=== PATIENT | male | born 1935 | race Hispanic/Latino ===

== ENCOUNTER 2017-06-24 10:52 | Inpatient (IN) | payer MEDICARE ==
[2017-06-24] MEDS ORDERED: ASPIRIN PO ONE (11:38)
[2017-06-24] MEDS ORDERED: NACL 0.9% 1000 ML IV ONE (11:59)
[2017-06-24] MEDS ORDERED: NACL 0.9% 1000 ML 2,000 ML ONE (12:01)
--- NOTE | 2017-06-24 12:06 | Emergency Department Report ---
ED General Adult HPI - General Chief complaint: Chest Pain Stated complaint: CHEST PAIN Time Seen by Provider: 06/24/17 11:43 Source: patient, family, EMS Mode of arrival: Stretcher Limitations: Physical Limitation - History of Present Illness Initial comments: Patient is a 51 years old male with history of COPD and hypertension presented to the ER with a chief complaint of right side chest pain and cough for the last few days. Patient describes his pain as sharp. He denied any nausea or vomiting. He is complaining of shortness of breath also. Patient is tachycardic with a low blood pressure of 80/38. Suspected sepsis or other screen placed patient receive antibiotic and fluids. -: Gradual - Related Data Allergies Allergy/AdvReac Type Severity Reaction Status Date / Time No Known Allergies Allergy Verified 02/08/15 13:36 ED Review of Systems ROS: Stated complaint: CHEST PAIN Other details as noted in HPI Comment: All other systems reviewed and negative Respiratory: cough, shortness of breath Cardiovascular: chest pain, palpitations Gastrointestinal: denies: abdominal pain, nausea, vomiting Neurological: denies: headache, weakness, numbness ED Past Medical Hx - Past Medical History Hx Hypertension: Yes Hx COPD: Yes (3LNC) Additional medical history: Skin cancer on face. - Surgical History Hx Appendectomy: Yes Additional Surgical History: stent x 3, sleeve placed in the aorta - Social History Smoking Status: Former Smoker ED Physical Exam - General Limitations: Physical Limitation General appearance: alert, in no apparent distress - Head Head exam: Present: atraumatic, normocephalic, normal inspection - ENT ENT exam: Present: normal exam, mucous membranes dry - Neck Neck exam: Present: normal inspection, full ROM. Absent: tenderness, meningismus - Respiratory Respiratory exam: Present: normal lung sounds bilaterally. Absent: respiratory distress, wheezes, rales, chest wall tenderness - Cardiovascular Cardiovascular Exam: Present: tachycardia - GI/Abdominal GI/Abdominal exam: Present: soft, normal bowel sounds. Absent: distended, tenderness, guarding, rebound, rigid, organomegaly, mass, bruit, pulsatile mass - Extremities Exam Extremities exam: Present: normal inspection, full ROM, normal capillary refill - Back Exam Back exam: Present: normal inspection, full ROM. Absent: CVA tenderness (L) - Neurological Exam Neurological exam: Present: alert, oriented X3. Absent: CN II-XII intact - Skin Skin exam: Present: warm, intact, normal color ED Course Vital Signs 06/24/17 06/24/17 06/24/17 11:11 11:16 11:28 Temperature 99.5 F Pulse Rate 127 H Respiratory 18 Rate Blood Pressure 105/55 105/55 109/55 O2 Sat by Pulse 98 97 Oximetry 06/24/17 06/24/17 06/24/17 11:30 11:36 11:46 Temperature Pulse Rate 126 H 123 H Respiratory 19 17 19 Rate Blood Pressure 109/55 105/55 O2 Sat by Pulse 99 98 Oximetry 06/24/17 06/24/17 06/24/17 12:00 12:16 12:28 Temperature 98.8 F Pulse Rate 122 H 121 H Respiratory 17 21 Rate Blood Pressure 93/48 93/48 O2 Sat by Pulse 98 98 Oximetry ED Medical Decision Making - Lab Data Result diagrams: 06/24/17 11:43 06/24/17 11:43 - EKG Data -: EKG Interpreted by Dc EKG shows normal: sinus rhythm Rate: tachycardia - EKG Data Interpretation: no acute changes - Radiology Data Radiology results: report reviewed Referring Physician: MARGIE WOLFF Patient Name: DIDI SLATER Date of : 1935 Sex: Male Report Date: 2017-06-24 Report Status: Finalized Findings [address] [address] XRay Report Signed Patient: DIDI SLATER MR#: [id number] : 1935 Acct:[id number] Age/Sex: 81 / M ADM Date: 06/24/17 Loc: ED Attending Dr: Ordering Physician: MARGIE WOLFF Date of Service: 06/24/17 Procedure(s): XR chest 1V ap Accession Number(s): [id number] cc: MARGIE WOLFF Fluoro Time In Minutes: PORTABLE CHEST INDICATION: Chest pain. COMPARISON: None similar. FINDINGS: Portable, frontal chest radiograph demonstrates bilateral mid to lower lung infiltrates, greatest centrally and partly obscuring questionably prominent/enlarged jose. Normal heart size. Clear upper lung zones. EKG leads. Lower cervical spine fusion hardware and few right supraclavicular surgical clips incompletely imaged. CONCLUSION: Bilateral mid to lower lung pneumonias, of uncertain chronicity and etiology with various differentials at this time including infection, inflammation or congestion, amongst others. Please also correlate clinically and with prior relevant imaging, if available. Thank you for the opportunity to participate in this patient's care. Transcribed By: RS Dictated By: JOSE MURRAY MD Electronically Authenticated By: JOSE MURRAY MD Signed Date/Time: 06/24/171228 DD/ 25 TD/TT: 06/24/171228 - Medical Decision Making Referring Physician: MARGIE WOLFF Patient Name: DIDI SLATER Date of : 1935 Sex: Male Report Date: 2017-06-24 Report Status: Finalized Findings [facility] [address] [place] [address] XRay Report Signed Discussed with Dr. Canas, he agreed to admit the patient to his service. Critical Care Time: Yes Critical care time in (mins) excluding proc time.: 30 Critical care attestation.: If time is entered above; I have spent that time in minutes in the direct care of this critically ill patient, excluding procedure time. ED Disposition Clinical Impression: Acute onset sepsis, Pneumonia Disposition: OP ADMIT IP TO THIS HOSP Is pt being admited?: Yes Condition: Stable Instructions: Bacterial Pneumonia (ED) Referrals: PRIMARY CARE, [Primary Care Provider] - 3-5 Days
[2017-06-24 12:29] LABS: BUN/Creatinine Ratio 29; Blood Urea Nitrogen 20 mg/dL (9-20); Calcium 8.6 mg/dL (8.4-10.2); Hemolysis Index 33
[2017-06-24 12:31] LABS: Hematocrit 32.8 % (35.5-45.6); Hemoglobin 10.8 gm/dl (11.8-15.2); Mean Corpuscular HGB Conc 33 % (32-34); Mean Corpuscular Hemoglobin 30 pg (28-32); Mean Corpuscular Volume 90 fl (84-94); Platelet Count 284 K/mm3 (140-440); Red Blood Count 3.63 M/mm3 (3.65-5.03); Red Cell Distribution Width 14.6 % (13.2-15.2)
--- NOTE | 2017-06-24 12:38 | XRay Report ---
PORTABLE CHEST INDICATION: Chest pain. COMPARISON: None similar. FINDINGS: Portable, frontal chest radiograph demonstrates bilateral mid to lower lung infiltrates, greatest centrally and partly obscuring questionably prominent/enlarged jose. Normal heart size. Clear upper lung zones. EKG leads. Lower cervical spine fusion hardware and few right supraclavicular surgical clips incompletely imaged. CONCLUSION: Bilateral mid to lower lung pneumonias, of uncertain chronicity and etiology with various differentials at this time including infection, inflammation or congestion, amongst others. Please also correlate clinically and with prior relevant imaging, if available. Thank you for the opportunity to participate in this patient's care.
[2017-06-24 12:42] LABS: INR 1.1 (0.87-1.13)
[2017-06-24 14:08] LABS: Anisocytosis 1+; Band Neutrophils # (Manual) 2.2 K/mm3; Basophils % (Manual) 0 % (0.0-1.8); Eosinophils % (Manual) 0 % (0.0-4.3); Total Cells Counted 100
[2017-06-24] MEDS: ZOSYN/NS 3.375GM/50ML 3.375 GM/50 ML BAG IV SCH ×2 (14:11→19:09)
[2017-06-24 15:51] LABS: Bilirubin,Urine NEG (Negative); Blood,Urine NEG (Negative); Color,Urine Yellow (Yellow); Mucus,Urine FEW /HPF; Nitrite,Urine NEG (Negative); Protein,Urine <15 mg/dL mg/dL (Negative)
[2017-06-24] MEDS ORDERED: PROVENTIL IH ONE (22:54)
--- NOTE | 2017-06-24 23:13 | Event Note ---
Date: 06/24/17 See dictated H/p in reports
[2017-06-24] MEDS ORDERED: PROAIR IH PRN (23:14)
[2017-06-24] MEDS ORDERED: ANTIVERT PO PRN (23:14)
[2017-06-24] MEDS ORDERED: NORCO 5/325 PO PRN (23:14)
[2017-06-24] MEDS ORDERED: DUONEB *Not for PRN Use IH ×2 (23:14→23:22)
[2017-06-24] MEDS ORDERED: NITROSTAT SL PRN (23:14)
[2017-06-24] MEDS ORDERED: NON-FORMULARY (Budesonide/Formoterol Fumarate [Symbicort 160-4.5 Mcg Inhaler] 2 PUFF) IH SCH (23:15)
[2017-06-24] MEDS ORDERED: MORPHINE IV PRN (23:20)
[2017-06-24] MEDS ORDERED: PERCOCET 5/325 PO PRN (23:20)
[2017-06-24] MEDS ORDERED: TYLENOL PO PRN (23:20)
[2017-06-24] MEDS ORDERED: ZOFRAN IV PRN (23:20)
[2017-06-24] MEDS ORDERED: DULCOLAX PR PRN (23:20)
[2017-06-24] MEDS ORDERED: DILAUDID IV PRN (23:20)
[2017-06-24] MEDS ORDERED: MILK OF MAGNESIA PO PRN (23:20)
[2017-06-24] MEDS ORDERED: VANCOMYCIN PHARMACY TO DOSE IV SCH (23:45)
[2017-06-24] MEDS ORDERED: NACL 0.9% 1000 ML 1,000 ML IV SCH (23:45)
[2017-06-24] MEDS ORDERED: PROVENTIL IH PRN (23:48)
--- NOTE | 2017-06-24 23:58 | History and Physical Report ---
CHIEF COMPLAINT: 1. Right-sided chest pain for 1 day. 2. Fever for 1 day. HISTORY OF PRESENT ILLNESS: An 81-year-old male with history of COPD, hypertension, gastroesophageal reflux disease, depression, and arthritis, who comes in for right-sided chest pain for 1 day duration and also cough productive of yellow sputum for the last few days, probably a week, also shortness of breath. In the ER, the patient's blood pressure was around 80/38. The patient generally not feeling well. No muscle aches. Feels very weak. Appetite is suppressed. PAST MEDICAL HISTORY: As mentioned is significant for COPD, hypertension, skin cancer on the face, depression, coronary artery disease, and chronic pain. PAST SURGICAL HISTORY: Appendectomy, stents x 3. Aortic surgery. SOCIAL HISTORY: Former smoker, stopped smoking a few years ago. FAMILY HISTORY: Significant for hypertension. REVIEW OF SYSTEMS: GENERAL: Generally feeling weak and fever with chills. HEENT: No sore throat, no postnasal drip. CARDIOVASCULAR AND RESPIRATORY SYSTEM: Shortness of breath and right-sided chest pain present. Wheezing present. No diaphoresis, no palpitations. GASTROINTESTINAL: No nausea, no vomiting, no diarrhea. GENITOURINARY SYSTEM: No dysuria and no flank pain. MUSCULOSKELETAL SYSTEM: No joint pains. CENTRAL NERVOUS SYSTEM: No syncope, no seizures. SKIN: No rashes. ENDOCRINE: No polyphagia, polydipsia, cold intolerance or heat intolerance. A 14-point review of systems done. PHYSICAL EXAMINATION: GENERAL: Elderly male, cooperative during examination. VITAL SIGNS: Temperature was 99.6, 98.8, and 99.5. Heart rate is 127 to 140. Blood pressure is 105/55, dropped down to 93/48. Respiratory rate is 15 to 21. HEENT: Unremarkable. Pupils equal and reactive. NECK: Supple, no lymphadenopathy, no thyromegaly. CARDIOVASCULAR AND RESPIRATORY SYSTEM: Bilateral rales present. Rhonchi present. Decent air entry. ABDOMEN: Soft and benign. No hepatosplenomegaly. No guarding, no rigidity. Hernial orifices are normal. EXTREMITIES: Good pedal pulses. No pedal edema. CENTRAL NERVOUS SYSTEM: Alert and oriented x 4, nonfocal exam. SKIN: Normal. LABORATORY DATA: Significant for white count of 21,500, hemoglobin of 10.8, and hematocrit of 32.8. Platelet count is 284,000. Sodium is 135, potassium is 4.2, chloride is 91.4, bicarbonate is 31, BUN and creatinine 20 and 0.7, glucose is 95. Lactic acid is 1.4 and repeat is 1.8. Urine is normal. Chest x-ray shows bilateral pneumonia. Mid to lower lung pneumonia is of uncertain chronicity and etiology. ASSESSMENT AND PLAN: 1. Sepsis, even the lactic acid is normal, I am more in favor of sepsis because of the hypotension and high white count. The patient initiated on intravenous Zosyn and intravenous vancomycin. 2. Aspiration pneumonia is a possibility, given his age. We will do a swallow screen. Also, isolation. Intravenous fluids for the hypotension. 3. Chronic obstructive pulmonary disease, continue DuoNeb q.3 p.r.n. and four times a day around the clock. Also, Symbicort. 4. Hypertension, hold the metoprolol. 5. Hyperlipidemia, continue simvastatin. 6. Depression, continue Cymbalta. 7. Deep venous thrombosis prophylaxis, Lovenox 40 mg subcutaneous daily. 8. Anemia, chronic. Nutritional, we will get the iron studies. Infectious Disease consult requested. JOB# [id number] DANDRE/YEN FLYNN
[2017-06-25] MEDS: REMERON PO SCH ×2 (01:14→22:19)
[2017-06-25] MEDS: LOPRESSOR PO SCH ×3 (01:14→22:19)
[2017-06-25] MEDS ORDERED: VANCOMYCIN 1,500 MG in NACL 0.9% 500 ML 500 ML IV ONE (02:00)
[2017-06-25] MEDS: ZOSYN/NS 3.375GM/50ML 3.375 GM/50 ML BAG IV SCH ×4 (02:08→17:25)
[2017-06-25 07:17] LABS: Hematocrit 31.8 % (35.5-45.6); Hemoglobin 10.1 gm/dl (11.8-15.2); Mean Corpuscular HGB Conc 32 % (32-34); Mean Corpuscular Hemoglobin 29 pg (28-32); Mean Corpuscular Volume 92 fl (84-94); Platelet Count 273 K/mm3 (140-440); Red Blood Count 3.46 M/mm3 (3.65-5.03); Red Cell Distribution Width 14.7 % (13.2-15.2)
[2017-06-25 07:28] LABS: Alanine Aminotransferase 9 units/L (7-56); Albumin 2.5 g/dL (3.9-5); BUN/Creatinine Ratio 23; Blood Urea Nitrogen 16 mg/dL (9-20); Calcium 8.3 mg/dL (8.4-10.2); Hemolysis Index 3
[2017-06-25] MEDS: DUONEB *Not for PRN Use IH SCH ×4 (08:25→19:25)
[2017-06-25] MEDS: PULMICORT IH SCH ×2 (08:25→19:21)
[2017-06-25] MEDS: BROVANA NEBU IH SCH ×2 (08:26→19:21)
[2017-06-25] MEDS ORDERED: TIOTROPIUM BROMIDE IH SCH (10:00)
[2017-06-25 10:56] LABS: Anisocytosis 1+; Band Neutrophils # (Manual) 1.4 K/mm3; Basophils % (Manual) 0 % (0.0-1.8); Eosinophils % (Manual) 0 % (0.0-4.3); Total Cells Counted 100
[2017-06-25] MEDS: HALFPRIN EC PO SCH (11:58)
[2017-06-25] MEDS: CYMBALTA PO SCH (11:58)
[2017-06-25] MEDS: PROTONIX PO SCH (11:59)
[2017-06-25] MEDS: ZOLOFT PO SCH (12:00)
[2017-06-25] MEDS: VANCOMYCIN/0.45 NS 1 GM/250 ML 1 GM/250 ML BAG IV SCH (15:18)
--- NOTE | 2017-06-25 15:18 | Consultation ---
History of Present Illness - Reason for Consult Consult date: 06/25/17 sepsis Requesting physician: BRIEN REZA - History of Present Illness 81 years old male with history of COPD, HTN and AAA s/p repair [address] [facility] with uneventful recovery. Patient was discharged home on and readmitted on 06/16 to [facility] due to influenza symptoms. Per patient, he tested positive for influneza and was found to have pneumonia. He was readmitted for 48h and sent home. His also had influneza. Unfortunately , he continues to cough and started c/o right sided chest pain, 6/10, no radiation, with deep inspiration. Denies fever, chills, N/V/D. He is complaining of shortness of breath also. In the emergency room his initial temperature was 99.5, heart rate 127, respiration 18, O2 sat 98, blood pressure 105/55. Initial white count 21.5. 10 Bands. Creatinine 0.7. Urinalysis was negative. Chest x-ray show bilateral mid and lower pneumonia. Microbiology: Blood cultures: 06/24 ngtd Urine cultures: Current Antimicrobials: Zosyn 06/25 Vancomycin 06/24 Previous Antimicrobials: Past History Past Medical History: COPD, other (AAA) Past Surgical History: Other (AAA repair 05/2017) Social history: no significant social history, lives with family Family history: no significant family history Medications and Allergies Allergies Allergy/AdvReac Type Severity Reaction Status Date / Time No Known Allergies Allergy Verified 02/08/15 13:36 Home Medications Medication Instructions Recorded Confirmed Last Taken Type Albuterol Sulfate [Ventolin HFA] 1 - 2 puff IH Q4H PRN 06/24/17 06/24/17 Unknown History Aspirin [Adult Low Dose Aspirin EC] 81 mg PO QDAY 06/24/17 06/24/17 Unknown History Budesonide/Formoterol Fumarate 2 puff IH BID 06/24/17 06/24/17 Unknown History [Symbicort 160-4.5 Mcg Inhaler] Diclofenac 0.1% (Nf) [Voltaren 1 drop OP BID 06/24/17 06/24/17 Unknown History (Nf)] Duloxetine HCl [Cymbalta] 60 mg PO QDAY 06/24/17 06/24/17 Unknown History HYDROcodone/APAP 5-325 [Sheffield 1 each PO Q6HR PRN 06/24/17 06/24/17 Unknown History 5/325] Ipratropium/Albuterol Sulfate 1 ampul IH Q6HR PRN 06/24/17 06/24/17 Unknown History [DUONEB *Not for PRN Use*] Meclizine [Antivert] 25 mg PO TID PRN 06/24/17 06/24/17 Unknown History Metoprolol [Lopressor] 25 mg PO BID 06/24/17 06/24/17 Unknown History Mirtazapine [Remeron] 30 mg PO HS 06/24/17 06/24/17 Unknown History Nitroglycerin [Nitrostat] 0.4 mg SL Q5M PRN 06/24/17 06/24/17 06/24/17 History Omeprazole Magnesium [Prilosec Otc] 20 mg PO DAILY 06/24/17 06/24/17 Unknown History Sertraline [Zoloft] 50 mg PO QDAY 06/24/17 06/24/17 Unknown History Simvastatin [Zocor TAB] 20 mg PO DAILY 06/24/17 06/24/17 Unknown History Tiotropium Lena [Spiriva 1 puff IH DAILY 06/24/17 06/24/17 Unknown History Respimat] Active Meds: Active Medications Acetaminophen (Tylenol) 650 mg PO Q4H PRN PRN Reason: Pain MILD(1-3)/Fever >100.5/HARVEY Acetaminophen/Hydrocodone Bitart (Sheffield 5/325) 1 each PO Q6H PRN PRN Reason: Pain Albuterol (Proventil) 2.5 mg IH Q3HRT PRN PRN Reason: Shortness Of Breath Albuterol/Ipratropium (Duoneb *Not For Prn Use*) 1 ampul IH QIDRT [facility] Last Admin: 06/25/17 12:54 Dose: 1 ampul Arformoterol Tartrate (Brovana Nebu) 15 mcg IH Q12HRT [facility] Last Admin: 06/25/17 08:26 Dose: 15 mcg Aspirin (Halfprin Ec) 81 mg PO QDAY [facility] Last Admin: 06/25/17 11:58 Dose: 81 mg Bisacodyl (Dulcolax) 10 mg MT QDAY PRN PRN Reason: Constipation unrelieved by MOM Budesonide (Pulmicort) 1 mg IH Q12HRT [facility] Last Admin: 06/25/17 08:25 Dose: 1 mg Duloxetine HCl (Cymbalta) 60 mg PO QDAY [facility] Last Admin: 06/25/17 11:58 Dose: 60 mg Hydromorphone HCl (Dilaudid) 0.5 mg IV Q3H PRN PRN Reason: Pain , Severe (7-10) Piperacillin Sod/Tazobactam Sod (Zosyn/Ns 3.375gm/50ml) 3.375 gm in 50 mls @ 100 mls/hr IV Q6HR [facility] Last Admin: 06/25/17 12:10 Dose: 100 mls/hr Sodium Chloride (Nacl 0.9% 1000 Ml) 1,000 mls @ 42 mls/hr IV DIRECT [facility] Last Admin: 06/25/17 01:21 Dose: 42 mls/hr Vancomycin HCl (Vancomycin/0.45 Ns 1 Gm/250 Ml) 1 gm in 250 mls @ 250 mls/hr IV Q12H [facility] Magnesium Hydroxide (Milk Of Magnesia) 30 ml PO Q4H PRN PRN Reason: Constipation Meclizine HCl (Antivert) 25 mg PO TID PRN PRN Reason: Vertigo Methylprednisolone Sodium Succinate (Solu-Medrol) 40 mg IV Q8H [facility] Last Admin: 06/25/17 12:06 Dose: 40 mg Metoprolol Tartrate (Lopressor) 25 mg PO BID [facility] Last Admin: 06/25/17 11:59 Dose: 25 mg Mirtazapine (Remeron) 30 mg PO HS [facility] Last Admin: 06/25/17 01:14 Dose: 30 mg Morphine Sulfate (Morphine) 2 mg IV Q4H PRN PRN Reason: Pain, Moderate (4-6) Nitroglycerin (Nitrostat) 0.4 mg SL Q5M PRN PRN Reason: Chest Pain Ondansetron HCl (Zofran) 4 mg IV Q8H PRN PRN Reason: N/V unrelieved by Reglan Oseltamivir Phosphate (Tamiflu) 75 mg PO BID [facility] Stop: 06/29/17 22:01 Oxycodone/Acetaminophen (Percocet 5/325) 1 tab PO Q6H PRN PRN Reason: Pain, Moderate (4-6) Pantoprazole Sodium (Protonix) 20 mg PO DAILY [facility] Last Admin: 06/25/17 11:59 Dose: 20 mg Pravastatin Sodium (Pravachol) 40 mg PO QHS [facility] Sertraline HCl (Zoloft) 50 mg PO QDAY [facility] Last Admin: 06/25/17 12:00 Dose: 50 mg Vancomycin HCl (Vancomycin Pharmacy To Dose) 1 each IV PKCONSULT MICK PRN Reason: Protocol Review of Systems All systems: negative (as per HPI rest of 10 ROS neg) Physical Examination - Physical Exam Narrative exam: General appearance: Alert in NAD, conversant Eyes: anicteric sclerae, moist conjunctivae; no lid-lag; PERRLA HENT: Atraumatic; oropharynx clear Neck: Trachea midline; supple, no thyromegaly or lymphadenopathy Lungs: ricky rhonchi and crackles CV: RRR, no murmurs Abdomen: Soft, non-tender; no masses or hepatosplenomegaly Extremities: No peripheral edema or extremity lymphadenopathy Skin: Normal temperature, turgor and texture; no rash, ulcers or subcutaneous nodules Psych: Appropriate affect, alert and oriented to person, place and time. Neuro: alert and oriented x 3. Moving all extermities Lines: No CVL / PICC - Constitutional Vitals: Vital Signs Temp Pulse Resp BP Pulse Ox 97.6 F 92 H 20 152/70 97 06/25/17 11:51 06/25/17 13:02 06/25/17 13:02 06/25/17 13:00 06/25/17 13:00 Temperature -Last 24 Hours Temperature 97.6 F Temperature 98.4 F Temperature 99.2 F Temperature 99.6 F Results - Labs CBC & Chem 7: 06/25/17 06:29 06/25/17 06:29 Labs: Abnormal lab results 06/25/17 06/25/17 06/25/17 Range/Units 06:29 06:29 06:29 WBC 19.9 H (4.5-11.0) K/mm3 RBC 3.46 L (3.65-5.03) M/mm3 Hgb 10.1 L (11.8-15.2) gm/dl Hct 31.8 L (35.5-45.6) % Seg Neuts % (Manual) 86.0 H (40.0-70.0) % Lymphocytes % (Manual) 2.0 L (13.4-35.0) % Seg Neutrophils # Man 17.1 H (1.8-7.7) K/mm3 Lymphocytes # (Manual) 0.4 L (1.2-5.4) K/mm3 Monocytes # (Manual) 1.0 H (0.0-0.8) K/mm3 Chloride 96.7 L (98-107) mmol/L Carbon Dioxide 31 H (22-30) mmol/L Creatinine 0.7 L (0.8-1.5) mg/dL Glucose 150 H (75-100) mg/dL Calcium 8.3 L (8.4-10.2) mg/dL C-Reactive Protein 30.70 H (0.00-1.30) mg/dL Total Protein 5.6 L (6.3-8.2) g/dL Albumin 2.5 L (3.9-5) g/dL Assessment and Plan Assessment: 1) Sepsis: Present on admission, manifested by low grade fever, tachycardia, hypotension, leukocytosis. Etiology most likely pneumonia. 2) Bilateral pneumonia: recent influenza and pneumonia admitted to [facility] for 48h a week ago and treated -Chest x-ray show bilateral mid and lower pneumonia. 3) COPD with exacarbation 4) AAA s/p repair [address] [facility] with uneventful recovery Plan: -follow-up blood cultures -obtain respiratory cultures, C-reactive protein (CRP) -check influenza antigen PCR in nasopharinx -check Legionella urine antigen, Streptococcus pneumoniae urine antigen -continue tino for now Thank you for your consultation, will follow up with you. Tarah Cash MD Infectious Diseases Specialist [facility] ([facility] M [phone] O [phone]
--- NOTE | 2017-06-25 15:45 | Progress Note ---
Assessment and Plan Assessment and plan: 81 years old male with history of COPD, HTN and AAA s/p repair 3 weeks ago at [facility] with uneventful recovery. Patient was discharged home on and readmitted on 06/16 to [facility] due to influenza symptoms. Per patient, he tested positive for influneza and was found to have pneumonia. His also had influneza. Unfortunately, he continues to cough and started c/o right sided chest pain, 6/10, no radiation, with deep inspiration. Denies fever , chills, N/V/D. He is complaining of shortness of breath also. Sepsis * Continue abx as ordered, ID consult, Aspiration pneumonia- LIKELY POST INFECTIOUS * Antibioitics, possible recent diagnosis of Influenza Presumed Influenza * Start Tamiflu COPD * Nebs, Pulmonary consult HTN * STABLE WILL MONITOR. AAA s/p repair 3 weeks ago at [facility] with uneventful recovery HYPERLIPIDEMIA * continue statins DEPRESSION * lathergic, but verbal ANEMIA * stable DVT/GI Spoke to the spouse at bedside. Questions answered. History Interval history: Patient is seen and examined this morning in no acute distress. Resting comfortable, still drowsy. Hospitalist Physical - Physical exam Narrative exam: VITAL SIGNS: Reviewed. GENERAL: The patient appeared elderly appearing, lethargic vital signs as documented. HEAD: No signs of head trauma. EYES: Pupils are equal. Extraocular motions intact. EARS: Hearing grossly intact. MOUTH: Oropharynx is normal. NECK: No adenopathy, no JVD. CHEST: Chest with crackles breath sounds bilaterally. CARDIAC: Regular rate and rhythm. S1 and S2, without murmurs, gallops, or rubs. VASCULAR: Trace Edema. Peripheral pulses normal and equal in all extremities. ABDOMEN: Soft, without detectable tenderness. No sign of distention. No rebound or guarding, and no masses palpated. Bowel Sounds normal. MUSCULOSKELETAL: Good range of motion of all major joints. Extremities without clubbing, cyanosis. Trace is trace edema. NEUROLOGIC EXAM: Awake, lethargic, oriented x 2. No focal sensory or strength deficits. Speech slow. Follows commands. PSYCHIATRIC: Mood normal. SKIN: No rash or lesions. - Constitutional Vitals: Temp Pulse Resp BP Pulse Ox 97.6 F 85 20 152/70 97 06/25/17 11:51 06/25/17 15:28 06/25/17 13:02 06/25/17 13:00 06/25/17 13:00 Results - Labs CBC & Chem 7: 06/25/17 06:29 06/25/17 06:29 Labs: Laboratory Last Values WBC 19.9 K/mm3 (4.5-11.0) H 06/25/17 06:29 RBC 3.46 M/mm3 (3.65-5.03) L 06/25/17 06:29 Hgb 10.1 gm/dl (11.8-15.2) L 06/25/17 06:29 Hct 31.8 % (35.5-45.6) L 06/25/17 06:29 MCV 92 fl (84-94) 06/25/17 06:29 MCH 29 pg (28-32) 06/25/17 06:29 MCHC 32 % (32-34) 06/25/17 06:29 RDW 14.7 % (13.2-15.2) 06/25/17 06:29 Plt Count 273 K/mm3 (140-440) 06/25/17 06:29 Add Manual Diff Complete 06/25/17 06:29 Total Counted 100 06/25/17 06:29 Seg Neutrophils % Paraprofessional Aide Teacher 06/25/17 06:29 Seg Neuts % (Manual) 86.0 % (40.0-70.0) H 06/25/17 06:29 Band Neutrophils % 7.0 % 06/25/17 06:29 Lymphocytes % (Manual) 2.0 % (13.4-35.0) L 06/25/17 06:29 Reactive Lymphs % (Man) 0 % 06/25/17 06:29 Monocytes % (Manual) 5.0 % (0.0-7.3) 06/25/17 06:29 Eosinophils % (Manual) 0 % (0.0-4.3) 06/25/17 06:29 Basophils % (Manual) 0 % (0.0-1.8) 06/25/17 06:29 Metamyelocytes % 0 % 06/25/17 06:29 Myelocytes % 0 % 06/25/17 06:29 Promyelocytes % 0 % 06/25/17 06:29 Blast Cells % 0 % 06/25/17 06:29 Nucleated RBC % Not Reportable 02/15/18 06:29 Seg Neutrophils # Man 17.1 K/mm3 (1.8-7.7) H 06/25/17 06:29 Band Neutrophils # 1.4 K/mm3 06/25/17 06:29 Lymphocytes # (Manual) 0.4 K/mm3 (1.2-5.4) L 06/25/17 06:29 Abs React Lymphs (Man) 0.0 K/mm3 06/25/17 06:29 Monocytes # (Manual) 1.0 K/mm3 (0.0-0.8) H 06/25/17 06:29 Eosinophils # (Manual) 0.0 K/mm3 (0.0-0.4) 06/25/17 06:29 Basophils # (Manual) 0.0 K/mm3 (0.0-0.1) 06/25/17 06:29 Metamyelocytes # 0.0 K/mm3 06/25/17 06:29 Myelocytes # 0.0 K/mm3 06/25/17 06:29 Promyelocytes # 0.0 K/mm3 06/25/17 06:29 Blast Cells # 0.0 K/mm3 06/25/17 06:29 WBC Morphology Not Reportable 06/25/17 06:29 Hypersegmented Neuts Not Reportable 06/25/17 06:29 Hyposegmented Neuts Not Reportable 06/25/17 06:29 Hypogranular Neuts Not Reportable 06/25/17 06:29 Smudge Cells Not Reportable 06/25/17 06:29 Toxic Granulation Not Reportable 06/25/17 06:29 Toxic Vacuolation Not Reportable 06/25/17 06:29 Dohle Bodies Not Reportable 06/25/17 06:29 Pelger-Huet Anomaly Not Reportable 06/25/17 06:29 Talat Rods Not Reportable 06/25/17 06:29 Platelet Estimate Not Reportable 06/25/17 06:29 Clumped Platelets Not Reportable 06/25/17 06:29 Plt Clumps, EDTA Not Reportable 06/25/17 06:29 Large Platelets Not Reportable 06/25/17 06:29 Giant Platelets Not Reportable 06/25/17 06:29 Platelet Satelliting Not Reportable 06/25/17 06:29 Plt Morphology Comment Not Reportable 06/25/17 06:29 RBC Morphology Not Reportable 06/25/17 06:29 Dimorphic RBCs Not Reportable 06/25/17 06:29 Polychromasia Not Reportable 06/25/17 06:29 Hypochromasia Not Reportable 06/25/17 06:29 Poikilocytosis Not Reportable 06/25/17 06:29 Anisocytosis 1+ 06/25/17 06:29 Microcytosis Not Reportable 06/25/17 06:29 Macrocytosis Not Reportable 06/25/17 06:29 Spherocytes Not Reportable 06/25/17 06:29 Pappenheimer Bodies Not Reportable 06/25/17 06:29 Sickle Cells Not Reportable 06/25/17 06:29 Target Cells Not Reportable 06/25/17 06:29 Tear Drop Cells Not Reportable 06/25/17 06:29 Ovalocytes Not Reportable 06/25/17 06:29 Helmet Cells Not Reportable 06/25/17 06:29 [place] Bodies Not Reportable 06/25/17 06:29 [place] Rings Not Reportable 06/25/17 06:29 Charley Cells Not Reportable 06/25/17 06:29 Bite Cells Not Reportable 06/25/17 06:29 Crenated Cell Not Reportable 06/25/17 06:29 Elliptocytes Not Reportable 06/25/17 06:29 Acanthocytes (Spur) Not Reportable 06/25/17 06:29 Rouleaux Not Reportable 06/25/17 06:29 Hemoglobin C Crystals Not Reportable 06/25/17 06:29 Schistocytes Not Reportable 06/25/17 06:29 Malaria parasites Not Reportable 06/25/17 06:29 Sheldon Bodies Not Reportable 06/25/17 06:29 Hem Pathologist Commnt No 06/25/17 06:29 PT 14.8 Sec. (12.2-14.9) 06/24/17 11:54 INR 1.10 (0.87-1.13) 06/24/17 11:54 Sodium 137 mmol/L (137-145) 06/25/17 06:29 Potassium 4.5 mmol/L (3.6-5.0) 06/25/17 06:29 Chloride 96.7 mmol/L (98-107) L 06/25/17 06:29 Carbon Dioxide 31 mmol/L (22-30) H 06/25/17 06:29 Anion Gap 14 mmol/L 06/25/17 06:29 BUN 16 mg/dL (9-20) 06/25/17 06:29 Creatinine 0.7 mg/dL (0.8-1.5) L 06/25/17 06:29 Estimated GFR > 60 ml/min 06/25/17 06:29 BUN/Creatinine Ratio 23 % 06/25/17 06:29 Glucose 150 mg/dL (75-100) H 06/25/17 06:29 Lactic Acid 1.80 mmol/L (0.7-2.0) 06/24/17 20:50 Calcium 8.3 mg/dL (8.4-10.2) L 06/25/17 06:29 Total Bilirubin 0.40 mg/dL (0.1-1.2) 06/25/17 06:29 AST 15 units/L (5-40) 06/25/17 06:29 ALT 9 units/L (7-56) 06/25/17 06:29 Alkaline Phosphatase 74 units/L (35-129) 06/25/17 06:29 Troponin T < 0.010 ng/mL (0.00-0.029) 06/24/17 20:50 C-Reactive Protein 30.70 mg/dL (0.00-1.30) H 06/25/17 06:29 Total Protein 5.6 g/dL (6.3-8.2) L 06/25/17 06:29 Albumin 2.5 g/dL (3.9-5) L 06/25/17 06:29 Albumin/Globulin Ratio 0.8 % 06/25/17 06:29 Urine Color Yellow (Yellow) 06/24/17 15:20 Urine Turbidity Clear (Clear) 06/24/17 15:20 Urine pH 6.0 (5.0-7.0) 06/24/17 15: Ur Specific [place] 1.018 (1.003-1.030) 06/24/17 15:20 Urine Protein <15 mg/dl mg/dL (Negative) 06/24/17 15:20 Urine Glucose (UA) Neg mg/dL (Negative) 06/24/17 15:20 Urine Ketones Neg mg/dL (Negative) 06/24/17 15:20 Urine Blood Neg (Negative) 06/24/17 15:20 Urine Nitrite Neg (Negative) 06/24/17 15:20 Urine Bilirubin Neg (Negative) 06/24/17 15:20 Urine Urobilinogen 4.0 mg/dL (<2.0) 06/24/17 15:20 Ur Leukocyte Esterase Neg (Negative) 06/24/17 15:20 Urine WBC (Auto) 2.0 /HPF (0.0-6.0) 06/24/17 15:20 Urine RBC (Auto) 4.0 /HPF (0.0-6.0) 06/24/17 15:20 U Epithel Cells (Auto) < 1.0 /HPF (0-13.0) 06/24/17 15:20 Urine Mucus Few /HPF 06/24/17 15:20 - Imaging and Cardiology Chest x-ray: image reviewed (bilateral lobar pneumonia)
[2017-06-25] MEDS: TAMIFLU PO SCH ×2 (17:25→22:19)
[2017-06-25] MEDS: PRAVACHOL PO SCH (22:19)
[2017-06-26] MEDS: VANCOMYCIN/0.45 NS 1 GM/250 ML 1 GM/250 ML BAG IV SCH ×2 (02:00→14:41)
[2017-06-26] MEDS: ZOSYN/NS 3.375GM/50ML 3.375 GM/50 ML BAG IV SCH ×4 (05:59→18:54)
[2017-06-26] MEDS: BROVANA NEBU IH SCH ×2 (08:15→21:33)
[2017-06-26] MEDS: PULMICORT IH SCH ×2 (08:16→21:33)
[2017-06-26] MEDS: DUONEB *Not for PRN Use IH SCH ×4 (08:16→21:34)
--- NOTE | 2017-06-26 10:19 | Progress Note ---
<ALBA BOURGEOIS - Last Filed: 06/26/17 13:50> Assessment and Plan Assessment: 1) Sepsis: Better. Etiology most likely pneumonia. 2) Bilateral pneumonia: recent influenza and pneumonia admitted to [facility] for 48h a week ago and treated -Chest x-ray show bilateral mid and lower pneumonia. -blood cultures 06/24 negative -CRP = 32.60 3) COPD with exacarbation 4) AAA s/p repair 3 weeks ago at [facility] with uneventful recovery Plan: -f/u respiratory cultures -check influenza antigen PCR in nasopharinx, canceled and rejected by lab, unclear reason -f/u Legionella urine antigen, Streptococcus pneumoniae urine antigen -continue vanco and zosyn day 3 -continue tamiflu day 2 of 5 -upon discharge we will do levaquin 750 mg po daily for 7 days until 06/30 Thank you for your consultation, will follow up with you. Alba Bourgeois NP for Dr. Tarah Cash MD Infectious Diseases Specialist [facility] ([facility]) M [phone] O [phone] Subjective Date of service: 06/26/17 Interval history: I feel better today, no fever Microbiology: Blood cultures: 06/24 ngtd Respiratory cultures: Urine cultures: Current Antimicrobials: Zosyn 06/25 Vancomycin 06/24 Tamiflu 06/25 Previous Antimicrobials: Objective - Exam Narrative Exam: General appearance: Alert in NAD, conversant Eyes: anicteric sclerae, moist conjunctivae; no lid-lag; PERRLA HENT: Atraumatic; oropharynx clear Neck: Trachea midline; supple, no thyromegaly or lymphadenopathy Lungs: ricky rhonchi and crackles CV: RRR, no murmurs Abdomen: Soft, non-tender; no masses or hepatosplenomegaly Extremities: No peripheral edema or extremity lymphadenopathy Skin: Normal temperature, turgor and texture; no rash, ulcers or subcutaneous nodules Psych: Appropriate affect, calm and cooperative Neuro: alert and oriented x 3. Moving all extermities Lines: No CVL / PICC - Constitutional Vitals: Vital Signs Temp Pulse Resp BP Pulse Ox 98.6 F 98 H 20 165/87 98 06/26/17 08:46 06/26/17 08:42 06/26/17 08:42 06/26/17 08:28 06/26/17 08:28 Temperature -Last 24 Hours Temperature 98.6 F Temperature 97.4 F Temperature 97.3 F Temperature 97.6 F - Labs CBC & Chem 7: 06/25/17 06:29 06/25/17 06:29 Labs: Abnormal lab results 06/25/17 06/25/17 06/25/17 Range/Units 06:29 06:29 16:23 Seg Neuts % (Manual) 86.0 H (40.0-70.0) % Lymphocytes % (Manual) 2.0 L (13.4-35.0) % Seg Neutrophils # Man 17.1 H (1.8-7.7) K/mm3 Lymphocytes # (Manual) 0.4 L (1.2-5.4) K/mm3 Monocytes # (Manual) 1.0 H (0.0-0.8) K/mm3 C-Reactive Protein 30.70 H 32.60 H (0.00-1.30) mg/dL <TARAH PACE - Last Filed: 06/26/17 17:23> Assessment and Plan I have personally interviewed and examined patient. I personally discussed and directed assessment and management with PASSENGER RELATIONS REPRESENTATIVE Nballu. Clinically improving. Likely post-influenza pneumonia improving on vancomycin and Zosyn. Tarah Cordero MD Objective - Constitutional Vitals: Vital Signs Temp Pulse Resp BP Pulse Ox 98.4 F 105 H 22 166/88 98 06/26/17 12:24 06/26/17 13:26 06/26/17 13:28 06/26/17 12:24 06/26/17 13:28 Temperature -Last 24 Hours Temperature 98.4 F Temperature 98.6 F Temperature 97.4 F Temperature 97.3 F - Labs CBC & Chem 7: 06/25/17 06:29 06/25/17 06:29 Labs: Abnormal lab results 06/25/17 Range/Units 16:23 C-Reactive Protein 32.60 H (0.00-1.30) mg/dL
[2017-06-26] MEDS: HALFPRIN EC PO SCH (11:07)
[2017-06-26] MEDS: ZOLOFT PO SCH (11:07)
[2017-06-26] MEDS: TAMIFLU PO SCH ×2 (11:07→21:42)
[2017-06-26] MEDS: PROTONIX PO SCH (11:07)
[2017-06-26] MEDS: CYMBALTA PO SCH (11:07)
[2017-06-26] MEDS: LOPRESSOR PO SCH ×2 (11:07→21:41)
--- NOTE | 2017-06-26 12:14 | Consultation ---
History of Present Illness Consult date: 06/26/17 Requesting physician: DIANNE CAMEJO Reason for consult: COPD, pneumonia History of present illness: 81 y/o male with known COPD, chronic respiratory failure, followed by Dr. Appiah admitted with post influenza pneumonia. Patient is not a good historian and is not at bedside. He is awake and alert and appears in no distress. ID has seen and started on Vanc and Zosyn. Remainder is negative. Past History Past Medical History: COPD, other (AAA) Past Surgical History: Other (AAA repair 05/2017) Social history: no significant social history, lives with family Family history: no significant family history Medications and Allergies Allergies Allergy/AdvReac Type Severity Reaction Status Date / Time No Known Allergies Allergy Verified 02/08/15 13:36 Home Medications Medication Instructions Recorded Confirmed Last Taken Type Albuterol Sulfate [Ventolin HFA] 1 - 2 puff IH Q4H PRN 06/24/17 06/24/17 Unknown History Aspirin [Adult Low Dose Aspirin EC] 81 mg PO QDAY 06/24/17 06/24/17 Unknown History Budesonide/Formoterol Fumarate 2 puff IH BID 06/24/17 06/24/17 Unknown History [Symbicort 160-4.5 Mcg Inhaler] Diclofenac 0.1% (Nf) [Voltaren 1 drop OP BID 06/24/17 06/24/17 Unknown History (Nf)] Duloxetine HCl [Cymbalta] 60 mg PO QDAY 06/24/17 06/24/17 Unknown History HYDROcodone/APAP 5-325 [Booker 1 each PO Q6HR PRN 06/24/17 06/24/17 Unknown History 5/325] Ipratropium/Albuterol Sulfate 1 ampul IH Q6HR PRN 06/24/17 06/24/17 Unknown History [DUONEB *Not for PRN Use*] Meclizine [Antivert] 25 mg PO TID PRN 06/24/17 06/24/17 Unknown History Metoprolol [Lopressor] 25 mg PO BID 06/24/17 06/24/17 Unknown History Mirtazapine [Remeron] 30 mg PO HS 06/24/17 06/24/17 Unknown History Nitroglycerin [Nitrostat] 0.4 mg SL Q5M PRN 06/24/17 06/24/17 06/24/17 History Omeprazole Magnesium [Prilosec Otc] 20 mg PO DAILY 06/24/17 06/24/17 Unknown History Sertraline [Zoloft] 50 mg PO QDAY 06/24/17 06/24/17 Unknown History Simvastatin [Zocor TAB] 20 mg PO DAILY 06/24/17 06/24/17 Unknown History Tiotropium [place] [Spiriva 1 puff IH DAILY 06/24/17 06/24/17 Unknown History Respimat] Active Meds: Active Medications Acetaminophen (Tylenol) 650 mg PO Q4H PRN PRN Reason: Pain MILD(1-3)/Fever >100.5/HARVEY Last Admin: 06/25/17 22:21 Dose: 650 mg Acetaminophen/Hydrocodone Bitart (Booker 5/325) 1 each PO Q6H PRN PRN Reason: Pain Albuterol (Proventil) 2.5 mg IH Q3HRT PRN PRN Reason: Shortness Of Breath Albuterol/Ipratropium (Duoneb *Not For Prn Use*) 1 ampul IH QIDRT [facility] Last Admin: 06/26/17 08:16 Dose: Not Given Arformoterol Tartrate (Brovana Nebu) 15 mcg IH Q12HRT [facility] Last Admin: 06/26/17 08:15 Dose: 15 mcg Aspirin (Halfprin Ec) 81 mg PO QDAY [facility] Last Admin: 06/26/17 11:07 Dose: 81 mg Bisacodyl (Dulcolax) 10 mg NC QDAY PRN PRN Reason: Constipation unrelieved by MOM Budesonide (Pulmicort) 1 mg IH Q12HRT [facility] Last Admin: 06/26/17 08:16 Dose: 0.5 mg Duloxetine HCl (Cymbalta) 60 mg PO QDAY [facility] Last Admin: 06/26/17 11:07 Dose: 60 mg Hydromorphone HCl (Dilaudid) 0.5 mg IV Q3H PRN PRN Reason: Pain , Severe (7-10) Piperacillin Sod/Tazobactam Sod (Zosyn/Ns 3.375gm/50ml) 3.375 gm in 50 mls @ 100 mls/hr IV Q6HR [facility] Last Admin: 06/26/17 05:59 Dose: 100 mls/hr Sodium Chloride (Nacl 0.9% 1000 Ml) 1,000 mls @ 42 mls/hr IV DIRECT [facility] Last Admin: 06/25/17 01:21 Dose: 42 mls/hr Vancomycin HCl (Vancomycin/0.45 Ns 1 Gm/250 Ml) 1 gm in 250 mls @ 250 mls/hr IV Q12H [facility] Last Admin: 06/26/17 02:00 Dose: 250 mls/hr Magnesium Hydroxide (Milk Of Magnesia) 30 ml PO Q4H PRN PRN Reason: Constipation Last Admin: 06/26/17 05:57 Dose: 30 ml Meclizine HCl (Antivert) 25 mg PO TID PRN PRN Reason: Vertigo Methylprednisolone Sodium Succinate (Solu-Medrol) 20 mg IV Q8H [facility] Metoprolol Tartrate (Lopressor) 25 mg PO BID [facility] Last Admin: 06/26/17 11:07 Dose: 25 mg Mirtazapine (Remeron) 30 mg PO HS [facility] Last Admin: 06/25/17 22:19 Dose: 30 mg Morphine Sulfate (Morphine) 2 mg IV Q4H PRN PRN Reason: Pain, Moderate (4-6) Nitroglycerin (Nitrostat) 0.4 mg SL Q5M PRN PRN Reason: Chest Pain Ondansetron HCl (Zofran) 4 mg IV Q8H PRN PRN Reason: N/V unrelieved by Reglan Oseltamivir Phosphate (Tamiflu) 75 mg PO BID [facility] Stop: 06/29/17 22:01 Last Admin: 06/26/17 11:07 Dose: 75 mg Oxycodone/Acetaminophen (Percocet 5/325) 1 tab PO Q6H PRN PRN Reason: Pain, Moderate (4-6) Pantoprazole Sodium (Protonix) 20 mg PO DAILY [facility] Last Admin: 06/26/17 11:07 Dose: 20 mg Pravastatin Sodium (Pravachol) 40 mg PO QHS [facility] Last Admin: 06/25/17 22:19 Dose: 40 mg Sertraline HCl (Zoloft) 50 mg PO QDAY [facility] Last Admin: 06/26/17 11:07 Dose: 50 mg Vancomycin HCl (Vancomycin Pharmacy To Dose) 1 each IV PKCONSULT [facility] PRN Reason: Protocol Review of Systems All systems: negative Physical Examination Vital signs: Vital Signs BP 105/55 06/24/17 11:11 General appearance: no acute distress, alert Eyes: non-icteric ENT: oropharynx moist Neck: supple Effort: normal Ascultation: Bilateral: diminished breath sounds Percussion: Bilateral: not dull Tactile fremitus: Bilateral: normal Cardiovascular: regular rate and rhythm Gastrointestinal: normoactive bowel sounds, soft, non-tender Results - Laboratory Findings CBC and BMP: 06/25/17 06:29 06/25/17 06:29 PT/INR, D-dimer PT 14.8 Sec. (12.2-14.9) 06/24/17 11:54 INR 1.10 (0.87-1.13) 06/24/17 11:54 Abnormal lab findings: Abnormal Labs 06/24/17 06/24/17 06/25/17 11:43 11:43 06:29 WBC 21.5 H 19.9 H RBC 3.63 L 3.46 L Hgb 10.8 L 10.1 L Hct 32.8 L 31.8 L Seg Neuts % (Manual) 80.0 H 86.0 H Lymphocytes % (Manual) 3.0 L 2.0 L Seg Neutrophils # Man 17.2 H 17.1 H Lymphocytes # (Manual) 0.6 L 0.4 L Monocytes # (Manual) 1.5 H 1.0 H Sodium 135 L Chloride 91.4 L Carbon Dioxide 31 H Creatinine 0.7 L Glucose Calcium C-Reactive Protein Total Protein Albumin 06/25/17 06/25/17 06/25/17 06:29 06:29 16:23 WBC RBC Hgb Hct Seg Neuts % (Manual) Lymphocytes % (Manual) Seg Neutrophils # Man Lymphocytes # (Manual) Monocytes # (Manual) Sodium Chloride 96.7 L Carbon Dioxide 31 H Creatinine 0.7 L Glucose 150 H Calcium 8.3 L C-Reactive Protein 30.70 H 32.60 H Total Protein 5.6 L Albumin 2.5 L - Diagnostic Findings Chest x-ray: image reviewed (right lower lobe vs mid lung infiltrate/air space disease, hyperinflation and flattening of diaphragms, consistent with air trapping) Assessment and Plan 81 y/o male with known COPD and chronic respiratory failure admitted with pneumonia, post influenza 1. Agree with Vanc therapy as Staph is very common post-flu 2. Decrease steroids to 20q8 3. Resume home regimen for COPD 4. Continue supplemental O2 5. Reviewed last office note from Td, placed in the chart.
[2017-06-26 18:44] VITALS: BP 167/90
--- NOTE | 2017-06-26 21:06 | Progress Note ---
Assessment and Plan Assessment and plan: 81 years old male with history of COPD, HTN and AAA s/p repair 3 weeks ago at [facility] with uneventful recovery. Patient was discharged home on and readmitted on 06/16 to [facility] due to influenza symptoms. Per patient, he tested positive for influneza and was found to have pneumonia. His also had influneza. Unfortunately, he continues to cough and started c/o right sided chest pain, 6/10, no radiation, with deep inspiration. Denies fever , chills, N/V/D. He is complaining of shortness of breath also. Sepsis * Continue abx as ordered, ID consult, * ID input noted Aspiration pneumonia- LIKELY POST INFECTIOUS * Antibioitics, possible recent diagnosis of Influenza Presumed Influenza * Start Tamiflu COPD * Nebs, Pulmonary consult NOTED, TAPER STEROIDS HTN * STABLE WILL MONITOR. AAA s/p repair 3 weeks ago at [facility] with uneventful recovery HYPERLIPIDEMIA * continue statins DEPRESSION * lathergic, but verbal ANEMIA * stable DVT/GI Spoke to the spouse at bedside. Transfere to [facility] unit History Interval history: Patient is seen and examined this morning in no acute distress. Resting comfortable, More awake today Hospitalist Physical - Physical exam Narrative exam: VITAL SIGNS: Reviewed. GENERAL: The patient appeared elderly appearing, lethargic vital signs as documented. HEAD: No signs of head trauma. EYES: Pupils are equal. Extraocular motions intact. EARS: Hearing grossly intact. MOUTH: Oropharynx is normal. NECK: No adenopathy, no JVD. CHEST: Chest with crackles breath sounds bilaterally. CARDIAC: Regular rate and rhythm. S1 and S2, without murmurs, gallops, or rubs. VASCULAR: Trace Edema. Peripheral pulses normal and equal in all extremities. ABDOMEN: Soft, without detectable tenderness. No sign of distention. No rebound or guarding, and no masses palpated. Bowel Sounds normal. MUSCULOSKELETAL: Good range of motion of all major joints. Extremities without clubbing, cyanosis. Trace is trace edema. NEUROLOGIC EXAM: Awake, lethargic, oriented x 2. No focal sensory or strength deficits. Speech slow. Follows commands. PSYCHIATRIC: Mood normal. SKIN: No rash or lesions. - Constitutional Vitals: Temp Pulse Resp BP Pulse Ox 98.4 F 96 H 20 167/90 97 06/26/17 18:43 06/26/17 18:43 06/26/17 18:43 06/26/17 18:43 06/26/17 18:43 Results - Labs CBC & Chem 7: 06/25/17 06:29 06/25/17 06:29 Labs: Laboratory Last Values WBC 19.9 K/mm3 (4.5-11.0) H 06/25/17 06:29 RBC 3.46 M/mm3 (3.65-5.03) L 06/25/17 06:29 Hgb 10.1 gm/dl (11.8-15.2) L 06/25/17 06:29 Hct 31.8 % (35.5-45.6) L 06/25/17 06:29 MCV 92 fl (84-94) 06/25/17 06:29 MCH 29 pg (28-32) 06/25/17 06:29 MCHC 32 % (32-34) 06/25/17 06:29 RDW 14.7 % (13.2-15.2) 06/25/17 06:29 Plt Count 273 K/mm3 (140-440) 06/25/17 06:29 Add Manual Diff Complete 06/25/17 06:29 Total Counted 100 06/25/17 06:29 Seg Neutrophils % Refueling Ramp Attendant 06/25/17 06:29 Seg Neuts % (Manual) 86.0 % (40.0-70.0) H 06/25/17 06:29 Band Neutrophils % 7.0 % 06/25/17 06:29 Lymphocytes % (Manual) 2.0 % (13.4-35.0) L 06/25/17 06:29 Reactive Lymphs % (Man) 0 % 06/25/17 06:29 Monocytes % (Manual) 5.0 % (0.0-7.3) 06/25/17 06:29 Eosinophils % (Manual) 0 % (0.0-4.3) 06/25/17 06:29 Basophils % (Manual) 0 % (0.0-1.8) 06/25/17 06:29 Metamyelocytes % 0 % 06/25/17 06:29 Myelocytes % 0 % 06/25/17 06:29 Promyelocytes % 0 % 06/25/17 06:29 Blast Cells % 0 % 06/25/17 06:29 Nucleated RBC % Not Reportable 06/25/17 06:29 Seg Neutrophils # Man 17.1 K/mm3 (1.8-7.7) H 06/25/17 06:29 Band Neutrophils # 1.4 K/mm3 06/25/17 06:29 Lymphocytes # (Manual) 0.4 K/mm3 (1.2-5.4) L 06/25/17 06:29 Abs React Lymphs (Man) 0.0 K/mm3 06/25/17 06:29 Monocytes # (Manual) 1.0 K/mm3 (0.0-0.8) H 06/25/17 06:29 Eosinophils # (Manual) 0.0 K/mm3 (0.0-0.4) 06/25/17 06:29 Basophils # (Manual) 0.0 K/mm3 (0.0-0.1) 06/25/17 06:29 Metamyelocytes # 0.0 K/mm3 06/25/17 06:29 Myelocytes # 0.0 K/mm3 06/25/17 06:29 Promyelocytes # 0.0 K/mm3 06/25/17 06:29 Blast Cells # 0.0 K/mm3 06/25/17 06:29 WBC Morphology Not Reportable 06/25/17 06:29 Hypersegmented Neuts Not Reportable 06/25/17 06:29 Hyposegmented Neuts Not Reportable 06/25/17 06:29 Hypogranular Neuts Not Reportable 06/25/17 06:29 Smudge Cells Not Reportable 06/25/17 06:29 Toxic Granulation Not Reportable 06/25/17 06:29 Toxic Vacuolation Not Reportable 06/25/17 06:29 Dohle Bodies Not Reportable 06/25/17 06:29 Pelger-Huet Anomaly Not Reportable 06/25/17 06:29 Talat Rods Not Reportable 06/25/17 06:29 Platelet Estimate Not Reportable 06/25/17 06:29 Clumped Platelets Not Reportable 06/25/17 06:29 Plt Clumps, EDTA Not Reportable 06/25/17 06:29 Large Platelets Not Reportable 06/25/17 06:29 Giant Platelets Not Reportable 06/25/17 06:29 Platelet Satelliting Not Reportable 06/25/17 06:29 Plt Morphology Comment Not Reportable 06/25/17 06:29 RBC Morphology Not Reportable 06/25/17 06:29 Dimorphic RBCs Not Reportable 06/25/17 06:29 Polychromasia Not Reportable 06/25/17 06:29 Hypochromasia Not Reportable 06/25/17 06:29 Poikilocytosis Not Reportable 06/25/17 06:29 Anisocytosis 1+ 06/25/17 06:29 Microcytosis Not Reportable 06/25/17 06:29 Macrocytosis Not Reportable 06/25/17 06:29 Spherocytes Not Reportable 06/25/17 06:29 Pappenheimer Bodies Not Reportable 06/25/17 06:29 Sickle Cells Not Reportable 06/25/17 06:29 Target Cells Not Reportable 06/25/17 06:29 Tear Drop Cells Not Reportable 06/25/17 06:29 Ovalocytes Not Reportable 06/25/17 06:29 Helmet Cells Not Reportable 06/25/17 06:29 [place] Bodies Not Reportable 06/25/17 06:29 D[place] Rings Not Reportable 06/25/17 06:29 Charley Cells Not Reportable 06/25/17 06:29 Bite Cells Not Reportable 06/25/17 06:29 Crenated Cell Not Reportable 06/25/17 06:29 Elliptocytes Not Reportable 06/25/17 06:29 Acanthocytes (Spur) Not Reportable 06/25/17 06:29 Rouleaux Not Reportable 06/25/17 06:29 Hemoglobin C Crystals Not Reportable 06/25/17 06:29 Schistocytes Not Reportable 06/25/17 06:29 Malaria parasites Not Reportable 06/25/17 06:29 Sheldon Bodies Not Reportable 06/25/17 06:29 Hem Pathologist Commnt No 06/25/17 06:29 PT 14.8 Sec. (12.2-14.9) 06/24/17 11:54 INR 1.10 (0.87-1.13) 06/24/17 11:54 Sodium 137 mmol/L (137-145) 06/25/17 06:29 Potassium 4.5 mmol/L (3.6-5.0) 06/25/17 06:29 Chloride 96.7 mmol/L (98-107) L 06/25/17 06:29 Carbon Dioxide 31 mmol/L (22-30) H 06/25/17 06:29 Anion Gap 14 mmol/L 06/25/17 06:29 BUN 16 mg/dL (9-20) 06/25/17 06:29 Creatinine 0.7 mg/dL (0.8-1.5) L 06/25/17 06:29 Estimated GFR > 60 ml/min 06/25/17 06:29 BUN/Creatinine Ratio 23 % 06/25/17 06:29 Glucose 150 mg/dL (75-100) H 06/25/17 06:29 Lactic Acid 1.80 mmol/L (0.7-2.0) 06/24/17 20:50 Calcium 8.3 mg/dL (8.4-10.2) L 06/25/17 06:29 Total Bilirubin 0.40 mg/dL (0.1-1.2) 06/25/17 06:29 AST 15 units/L (5-40) 06/25/17 06:29 ALT 9 units/L (7-56) 06/25/17 06:29 Alkaline Phosphatase 74 units/L (35-129) 06/25/17 06:29 Troponin T < 0.010 ng/mL (0.00-0.029) 06/24/17 20:50 C-Reactive Protein 32.60 mg/dL (0.00-1.30) H 06/25/17 16:23 Total Protein 5.6 g/dL (6.3-8.2) L 06/25/17 06:29 Albumin 2.5 g/dL (3.9-5) L 06/25/17 06:29 Albumin/Globulin Ratio 0.8 % 06/25/17 06:29 Urine Color Yellow (Yellow) 06/24/17 15:20 Urine Turbidity Clear (Clear) 06/24/17 15: Urine pH 6.0 (5.0-7.0) 06/24/17 15:20 Ur Specific [place] 1.018 (1.003-1.030) 06/24/17 15:20 Urine Protein <15 mg/dl mg/dL (Negative) 06/24/17 15:20 Urine Glucose (UA) Neg mg/dL (Negative) 06/24/17 15:20 Urine Ketones Neg mg/dL (Negative) 06/24/17 15:20 Urine Blood Neg (Negative) 06/24/17 15:20 Urine Nitrite Neg (Negative) 06/24/17 15:20 Urine Bilirubin Neg (Negative) 06/24/17 15:20 Urine Urobilinogen 4.0 mg/dL (<2.0) 06/24/17 15:20 Ur Leukocyte Esterase Neg (Negative) 06/24/17 15:20 Urine WBC (Auto) 2.0 /HPF (0.0-6.0) 06/24/17 15:20 Urine RBC (Auto) 4.0 /HPF (0.0-6.0) 06/24/17 15:20 U Epithel Cells (Auto) < 1.0 /HPF (0-13.0) 06/24/17 15:20 Urine Mucus Few /HPF 06/24/17 15:20
[2017-06-26] MEDS: REMERON PO SCH (21:41)
[2017-06-26] MEDS: PRAVACHOL PO SCH (21:41)
[2017-06-27] MEDS ORDERED: ADRENALIN ONE (01:37)
--- NOTE | 2017-06-27 01:47 | Event Note ---
Date: 06/27/17 Patient called for SOWMYA TORRES I arrived to the home hospice doctor name was working the code patient was placed on a monitoring manager. He was being adequately bagged but did appear to be cyanotic he was asystolic without respirations SOWMYA TORRES was called about 114. ACLS was in progress. Patient was in asystole without pulse or pressure or spontaneous respirations. RT was in the middle attempting ET tube however at this point I will get suction we did continue to bag at this point time I was able to scoot airway with the bougie with 7.5 tube with good color change breath sounds were auscultated in all lung durham ACLS protocol was continued per Dr. martinez. Dr. blue pronounce the patient had O137 after efforts were deemed futile. Patient did have fixed dilated pupils spontaneous circulation. final rhythm was asystole without pulse or spontaneous respirations or blood pressure.
--- NOTE | 2017-06-27 08:31 | Death Summary ---
Summary - Providers Date of service: 06/27/17 Consults: 06/24/17 Consult to Case Management [CONS] Routine Services Needed at Discharge: Home Health Services Notified:: immigration case manager 06/24/17 23:20 Consult to Physician [CONS] Routine Consulting Provider: HEIKE PACE Reason For Exam: sepsis Place consult to:: ID Notified:: DR Cordero Was contact made?: Yes Time called:: 08:26 06/25/17 12:08 Consult to Physician [CONS] Routine Consulting Provider: KHALIF MARTINS Reason For Exam: acute respiratory failure Place consult to:: Dr Martins Notified:: yes Was contact made?: Yes Time called:: 12:17 Attending: DIANNE CAMEJO MD - summary Date of admission: 06/24/17 13:13 Date of : 06/27/17 Reason for admission: SEPSIS Significant findings: 81 years old male with history of COPD, HTN and AAA s/p repair 3 weeks ago at [facility] with uneventful recovery. Patient was discharged home on and readmitted on 06/16 to [facility] due to influenza symptoms. Per patient, he tested positive for influneza and was found to have pneumonia. His also had influneza. Unfortunately, he continues to cough and started c/o right sided chest pain, 6/10, no radiation, with deep inspiration. Denies fever , chills, N/V/D. He is complaining of shortness of breath also. Admission the patient was started on empiric antibiotic coverage ID was consulted and pulmonary was consulted patient steroids was being tapered as was improving unfortunately in the middle of the night the patient went into cardiopulmonary arrest and despite great efforts to resuscitate him was unsuccessful. Patient was pronounced by the covering physician. Sepsis Aspiration pneumonia Presumed Influenza COPD HTN AAA s/p repair 3 weeks ago at [facility] with uneventful recovery HYPERLIPIDEMIA DEPRESSION ANEMIA
== END 2017-06-27 01:37 | DRG 871 ==
LOC: ED 10:52 → 4A 13:13 → 2B-ACE 06-26 23:17
PROVIDERS: ADMIT Internal Medicine; ATTEND Internal Medicine
DX: A41.9 Sepsis, unspecified organism (principal); J69.0 Pneumonitis due to inhalation of food and vomit; J44.1 Chronic obstructive pulmonary disease with (acute) exacerbation; J96.10 Chronic respiratory failure, unspecified whether with hypoxia or hypercapnia; I10 Essential (primary) hypertension; E78.5 Hyperlipidemia, unspecified; K21.9 Gastro-esophageal reflux disease without esophagitis; F32.9 Major depressive disorder, single episode, unspecified; D64.9 Anemia, unspecified; J11.1 Influenza due to unidentified influenza virus with other respiratory manifestations; I71.4 Abdominal aortic aneurysm, without rupture; M19.90 Unspecified osteoarthritis, unspecified site; I25.10 Atherosclerotic heart disease of native coronary artery without angina pectoris; G89.29 Other chronic pain; Z87.891 Personal history of nicotine dependence; Z90.49 Acquired absence of other specified parts of digestive tract; Z82.49 Family history of ischemic heart disease and other diseases of the circulatory system
CPT/HCPCS: 36415; 71045; 80048; 80053; 81001; 82140; 82962; 84484; 85007; 85025; 85610; 86140; 87040; 87070; 87205; 87449; 92950; 93005; 93010; 94640; 94760; 96361; 99291; A9270-GY; J0171; J2543; J2920; J3370; J7030; J7040